=== PATIENT | male | born 1980 | race Caucasian/White ===

== ENCOUNTER 2018-12-24 10:02 | Emergency (ER) | payer SELFPAY ==
[~2018-12-24] VITALS: Ht 193 cm; Wt 86.2 kg
[2018-12-24] MEDS ORDERED: MORPHINE SULFATE 10 MG/ML VIAL. SQ ONE (10:15)
[2018-12-24 10:18] VITALS: BP 129/78
[2018-12-24] MEDS ORDERED: AMOX500C PO (11:00)
[2018-12-24] MEDS ORDERED: TRAM50TA PO (11:00)
--- NOTE | 2018-12-24 11:01 | PHYS DOC ---
Past Medical History Past Surgical History: Appendectomy Additional Past Surgical Histo: Hernia repair Additional Information: Chewing tabacco 2 cans per week Alcohol Use: None Drug Use: None Adult General Chief Complaint Chief Complaint: DENTAL PROBLEM HPI HPI Patient is a 38 year old male who presents with a fractured tooth to his left upper jaw that has become very painful over the past few days. The patient does not currently have a dentist. He has been taking ibuprofen with little relief for the pain. He denies fever or facial swelling. Review of Systems Review of Systems Constitutional: Denies fever or chills [] Eyes: Denies change in visual acuity, redness, or eye pain [] HENT: See history of present illness Respiratory: Denies cough or shortness of breath [] Cardiovascular: No additional information not addressed in HPI [] Neurologic: Denies headache, focal weakness or sensory changes [] Endocrine: Denies polyuria or polydipsia [] All other systems were reviewed and found to be within normal limits, except as documented in this note. Current Medications Current Medications Current Medications Medications (Trade) Dose Ordered Sig/Herlinda Start Time Stop Time Status Last Admin Dose Admin Morphine Sulfate (Morphine Sulfate) 10 mg 1X ONCE 12/24/18 10:15 12/24/18 10:22 DC 12/24/18 10:35 10 MG Allergies Allergies Allergies Coded Allergies Type Severity Reaction Last Updated Verified No Known Drug Allergies 12/24/18 No Physical Exam Physical Exam Constitutional: Well developed, well nourished, no acute distress, non-toxic appearance. [] HENT: Normocephalic, atraumatic, bilateral external ears normal, fracture to tooth #15 with mild erythema noted around the gum line Eyes: PERRLA, EOMI, conjunctiva normal, no discharge. [] Neck: Normal range of motion, no tenderness, supple, no stridor. [] Cardiovascular:Heart rate regular rhythm, no murmur [] Lungs & Thorax: Bilateral breath sounds clear to auscultation [] Neurologic: Alert and oriented X 3, normal motor function, normal sensory function, no focal deficits noted. [] Psychologic: Affect normal, judgement normal, mood normal. [] Current Patient Data Vital Signs Vital Signs Date Time Temp Pulse Resp B/P (MAP) Pulse Ox O2 Delivery O2 Flow Rate FiO2 12/24/18 10:35 20 99 12/24/18 10:18 97.5 60 129/78 (95) Room Air 97.5 EKG EKG [] Radiology/Procedures Radiology/Procedures [] Course & Med Decision Making Course & Med Decision Making Pertinent Labs and Imaging studies reviewed. (See chart for details) []The patient was given 10 mg of morphine subcutaneous to help control his pain. Dragon Disclaimer Dragon Disclaimer This electronic medical record was generated, in whole or in part, using a voice recognition dictation system. Departure Departure Impression: Primary Impression: Pain, dental Additional Impression: Fractured tooth Disposition: HOME, SELF-CARE Condition: STABLE Referrals: NO PCP (PCP) Patient Instructions: Tooth Fracture Additional Instructions: Take medication as directed. Follow-up with a dentist at an earliest possible appointment. Do not drive or operate heavy machinery today, as you were given narcotic pain medication. Scripts Tramadol Hcl (TRAMADOL HCL) 50 Mg Tablet 50 MG PO DAILY PRN for PAIN, #10 TAB 0 Refills Prov: YADIRA DE LA ROSA APRN 12/24/18 Amoxicillin (AMOXICILLIN) 500 Mg Capsule 2 CAP PO BID for tooth infection, #40 CAP Prov: YADIRA DE LA ROSA APRN 12/24/18 Problem Qualifiers YADIRA DE LA ROSA APRN Dec 24, 2018 11:01
== END 2018-12-24 11:06 | disposition home or self-care (01) ==
LOC: ER 10:02
DX: S02.5XXA Fracture of tooth (traumatic), initial encounter for closed fracture (principal); F17.220 Nicotine dependence, chewing tobacco, uncomplicated; X58.XXXA Exposure to other specified factors, initial encounter; Y93.89 Activity, other specified; Y92.89 Other specified places as the place of occurrence of the external cause; Y99.8 Other external cause status
CPT/HCPCS: 96372; 99283; J2270

== ENCOUNTER 2019-03-11 09:38 | Emergency (ER) | payer SELFPAY ==
[~2019-03-11] VITALS: Ht 193 cm; Wt 86.2 kg
[~2019-03-11 09:38] MED LIST: AMOX500C PO; TRAM50TA PO
[2019-03-11 09:39] VITALS: BP 123/85
[2019-03-11] MEDS ORDERED: AMOX1TAB61 PO (10:26)
--- NOTE | 2019-03-11 10:26 | PHYS DOC ---
Past Medical History Past Medical History: No Pertinent History Past Surgical History: Appendectomy Additional Past Surgical Histo: Hernia repair Alcohol Use: Occasionally Drug Use: None Adult General Chief Complaint Chief Complaint: DENTAL PROBLEM HPI HPI Patient is a 38 year old male presents with a toothache has been ongoing for 3- 4 days. Patient states he broke off his tooth and that time and states it has been hurting since. Rates his pain as 6 out of 10. The character of the pain is throbbing, and sharp. Has tried ibuprofen at home which is working minimally. Review of Systems Review of Systems Constitutional: Denies fever or chills [] Eyes: Denies change in visual acuity, redness, or eye pain [] HENT: Denies nasal congestion or sore throat but is having dental pain. Respiratory: Denies cough or shortness of breath [] Cardiovascular: No additional information not addressed in HPI [] GI: Denies abdominal pain, nausea, vomiting, bloody stools or diarrhea [] : Denies dysuria or hematuria [] Musculoskeletal: Denies back pain or joint pain [] Integument: Denies rash or skin lesions [] Neurologic: Denies headache, focal weakness or sensory changes [] Endocrine: Denies polyuria or polydipsia [] Complete systems were reviewed and found to be within normal limits, except as documented in this note. Allergies Allergies Allergies Coded Allergies Type Severity Reaction Last Updated Verified No Known Drug Allergies 12/24/18 No Physical Exam Physical Exam Constitutional: Well developed, well nourished, no acute distress, non-toxic appearance. [] HENT: Normocephalic, atraumatic, bilateral external ears normal, oropharynx moist, no oral exudates, nose normal. Swelling and chipped tooth at #32. Eyes: PERRLA, EOMI, conjunctiva normal, no discharge. [] Neck: Normal range of motion, no tenderness, supple, no stridor. [] Cardiovascular:Heart rate regular rhythm, no murmur [] Lungs & Thorax: Bilateral breath sounds clear to auscultation [] Abdomen: Bowel sounds normal, soft, no tenderness, no masses, no pulsatile masses. [] Skin: Warm, dry, no erythema, no rash. [] Back: No tenderness, no CVA tenderness. [] Extremities: No tenderness, no cyanosis, no clubbing, ROM intact, no edema. [] Neurologic: Alert and oriented X 3, normal motor function, normal sensory function, no focal deficits noted. [] Psychologic: Affect normal, judgement normal, mood normal. [] Current Patient Data Vital Signs Vital Signs Date Time Temp Pulse Resp B/P (MAP) Pulse Ox O2 Delivery O2 Flow Rate FiO2 03/11/19 09:39 97.9 67 16 123/85 (98) 98 Room Air 97.9 EKG EKG [] Radiology/Procedures Radiology/Procedures [] Course & Med Decision Making Course & Med Decision Making Pertinent Labs and Imaging studies reviewed. (See chart for details) Will put on antibiotic and have follow up with a dentist. Dragon Disclaimer Dragon Disclaimer This electronic medical record was generated, in whole or in part, using a voice recognition dictation system. Departure Departure Impression: Primary Impression: Dental abscess Disposition: 01 HOME, SELF-CARE Condition: STABLE Referrals: NO PCP (PCP) Patient Instructions: Dental Abscess Additional Instructions: Please follow up with a dentist as soon as possible. Take ibuprofen per the label instructions for pain control. Take antibiotic as prescribed. Scripts Amoxicillin/Potassium Clav (AUGMENTIN 875-125 TABLET) 1 Each Tablet 1 TAB PO BID for 7 Days, #14 TAB Prov: BEV WEBSTER APRN 03/11/19 BEV WEBSTER APRN Mar 11, 2019 10:26
[2019-03-11] MEDS ORDERED: KETOROLAC 30 MG/ML VIAL. IV ONE (10:30)
[2019-03-11] MEDS ORDERED: KETOROLAC 60 MG/2 ML VIAL. IM ONE (11:00)
== END 2019-03-11 11:01 | disposition home or self-care (01) ==
LOC: ER 09:38
DX: K02.9 Dental caries, unspecified (principal); S02.5XXA Fracture of tooth (traumatic), initial encounter for closed fracture; Z90.89 Acquired absence of other organs; X58.XXXA Exposure to other specified factors, initial encounter; Y93.89 Activity, other specified; Y92.89 Other specified places as the place of occurrence of the external cause; Y99.8 Other external cause status
CPT/HCPCS: 96372; 99283; J1885

== ENCOUNTER 2019-03-13 | Emergency (ER) | payer SELFPAY ==
[~2019-03-13] VITALS: Ht 193 cm; Wt 86.2 kg
[~2019-03-13] MED LIST changes: +AMOX1TAB61 PO
[2019-03-13] MEDS ORDERED: ONDANSETRON PF 4 MG/2 ML VIAL. IV ONE (00:30)
[2019-03-13] MEDS ORDERED: FAMOTIDINE 20 MG/2 ML VIAL IVP ONE (00:30)
[2019-03-13] MEDS ORDERED: MORPHINE SULFATE 4 MG/ML VIAL. IV ONE (00:30)
[2019-03-13 00:54] VITALS: BP 140/84
--- NOTE | 2019-03-13 01:15 | PHYS DOC ---
Past Medical History Past Medical History: No Pertinent History Past Surgical History: Appendectomy Additional Past Surgical Histo: Hernia repair Alcohol Use: Occasionally Drug Use: None Adult General Chief Complaint Chief Complaint: OTHER COMPLAINTS HPI HPI Patient is a 38 year old female with history of dysphagia presents with sensation of food bolus stuck in his upper esophagus. Patient has a history of dysphagia. States that symptoms started 2 hours ago after eating meat. Patient has been unable to drink and has been vomiting spitting up. He is able to sissy ntain his secretions. Patient has not per been formally aggravated for dysphasia. He is not on any medications. Denies choking or aspiration episodes.[] Review of Systems Review of Systems ROS as per HPI All other systems were reviewed and found to be within normal limits, except as documented in this note. Current Medications Current Medications Current Medications Medications (Trade) Dose Ordered Sig/Herlinda Start Time Stop Time Status Last Admin Dose Admin Famotidine (Pepcid Vial) 20 mg 1X ONCE 03/13/19 00:30 03/13/19 00:35 DC 03/13/19 00:48 20 MG Morphine Sulfate (Morphine Sulfate) 4 mg 1X ONCE 03/13/19 00:30 03/13/19 00:35 DC 03/13/19 00:48 4 MG Ondansetron HCl (Zofran) 4 mg 1X ONCE 03/13/19 00:30 03/13/19 00:35 DC 03/13/19 00:48 4 MG Allergies Allergies Allergies Coded Allergies Type Severity Reaction Last Updated Verified No Known Drug Allergies 12/24/18 No Physical Exam Physical Exam Constitutional: Well developed, well nourished, no acute distress, non-toxic appearance. [] HENT: Normocephalic, atraumatic, bilateral external ears normal, oropharynx moist, no oral exudates, nose normal. [] Eyes: PERRLA, EOMI, conjunctiva normal, no discharge. [] Neck: Normal range of motion, no tenderness, supple, no stridor. [] Cardiovascular:Heart rate regular rhythm, no murmur [] Lungs & Thorax: Bilateral breath sounds clear to auscultation [] Abdomen: Bowel sounds normal, soft, no epigastric pain or tenderness. [] Skin: Warm, dry, no erythema, no rash. [] Neurologic: Alert and oriented X 3, normal motor function, normal sensory function, no focal deficits noted. [] Psychologic: Affect normal, judgement normal, mood normal. [] Current Patient Data Vital Signs Vital Signs Date Time Temp Pulse Resp B/P (MAP) Pulse Ox O2 Delivery O2 Flow Rate FiO2 03/13/19 00:20 70 18 161/102 (121) 98 Room Air 03/13/19 00:06 97.9 97.9 EKG EKG [] Radiology/Procedures Radiology/Procedures [CXR: No acute cardiopulmonary disease on preliminary ED review] Course & Med Decision Making Course & Med Decision Making Pertinent Labs and Imaging studies reviewed. (See chart for details) [Medications given, patient able to pass food bolus while in the emergency department including fluids without difficulty. Recommend antacid and PCP follow-up for GI referral.] Dragon Disclaimer Dragon Disclaimer This electronic medical record was generated, in whole or in part, using a voice recognition dictation system. Departure Departure Impression: Primary Impression: Dysphagia Disposition: 01 HOME, SELF-CARE Condition: GOOD Referrals: NO PCP (PCP) Patient Instructions: Dysphagia Additional Instructions: Please start Prilosec see daily and follow-up with local primary care physician for evaluation and consideration of GI referral. JOSEP SILVEIRA DO Mar 13, 2019 01:15
--- NOTE | 2019-03-13 08:19 | RAD ---
AP portable chest radiograph 03/13/2019 Clinical History: Chest pain. An AP erect portable digital radiograph of the chest was obtained. No previous studies are available for comparison. The cardiac and mediastinal silhouettes are within normal limits in size and configuration. No acute pulmonary infiltrate is seen. No pleural effusion or pneumothorax is noted. The osseous structures are grossly intact. IMPRESSION: No acute abnormality is seen. Electronically signed by: Jerome Easley MD (03/13/2019 8:16 AM) [id number]
== END 2019-03-13 01:30 | disposition home or self-care (01) ==
LOC: ER
DX: R13.10 Dysphagia, unspecified (principal); R11.10 Vomiting, unspecified; Z90.89 Acquired absence of other organs
CPT/HCPCS: 71045; 96374; 96375; 99284; J2270; J2405; J3490

== ENCOUNTER 2019-10-24 05:37 | Emergency (ER) | payer SELFPAY ==
[~2019-10-24] VITALS: Ht 188 cm; Wt 86.2 kg
[2019-10-24 05:45] VITALS: BP 136/85
--- NOTE | 2019-10-24 05:52 | PHYS DOC ---
Past Medical History Past Medical History: No Pertinent History Past Surgical History: Appendectomy Additional Past Surgical Histo: Hernia repair Alcohol Use: Occasionally Drug Use: None Adult General Chief Complaint Chief Complaint: DENTAL PROBLEM HPI HPI Patient is a 38 year old male who presents with left inner cheek pain after dipping tobacco last week. No chest pain shortness of breath. No fever chills, facial swelling. No fever or chills. ] Review of Systems Review of Systems ROS as per HPI All other systems were reviewed and found to be within normal limits, except as documented in this note. Allergies Allergies Allergies Coded Allergies Type Severity Reaction Last Updated Verified No Known Drug Allergies 12/24/18 No Physical Exam Physical Exam Constitutional: Well developed, well nourished, no acute distress, non-toxic appearance. [] HENT: Normocephalic, atraumatic, bilateral external ears normal, oropharynx moist, canker sore inner cheek . nose normal. [] Eyes: PERRLA, EOMI, conjunctiva normal, no discharge. [] Cardiovascular:Heart rate regular rhythm, no murmur [] Lungs & Thorax: Bilateral breath sounds clear to auscultation [] Neurologic: Alert and oriented X 3, normal motor function, normal sensory function, no focal deficits noted. [] Psychologic: Affect normal, judgement normal, mood normal. [] EKG EKG [] Radiology/Procedures Radiology/Procedures [] Course & Med Decision Making Course & Med Decision Making Pertinent Labs and Imaging studies reviewed. (See chart for details) [Emergent medical screening exam performed. Patient does not have acute life-t hreatening condition. Additional evaluation offered, but declined by patient.Patient instructed to follow-up with local PCP] Jeannette Disclaimer Dragon Disclaimer This electronic medical record was generated, in whole or in part, using a voice recognition dictation system. Departure Departure Impression: Primary Impression: Encounter for medical screening examination Disposition: HOME, SELF-CARE Condition: STABLE Referrals: NO PCP (PCP) Patient Instructions: Medical Screening Exam Additional Instructions: You were evaluated in the emergency department. An emergent medical screening exam was performed and were not found to have and emergent condition. Please follow-up with your primary care physician any further concerns. JOSEP SILVEIRA DO Oct 24, 2019 05:51
== END 2019-10-24 05:50 | disposition home or self-care (01) ==
LOC: ER 05:37
DX: K13.79 Other lesions of oral mucosa (principal); G50.1 Atypical facial pain; Z90.89 Acquired absence of other organs; Z98.890 Other specified postprocedural states
CPT/HCPCS: 99281

== ENCOUNTER 2020-03-13 17:31 | Emergency (ER) | payer SELFPAY ==
[~2020-03-13] VITALS: Ht 193 cm; Wt 100.0 kg
[2020-03-13 18:10] VITALS: BP 123/75
[2020-03-13] MEDS ORDERED: DOCUSATE 100 MG/10 ML SOLUTION. AS STA (18:15)
[2020-03-13] MEDS ORDERED: traMADol 50 MG TABLET PO ONE (18:15)
[2020-03-13] MEDS ORDERED: DICL50TA2 PO (19:33)
--- NOTE | 2020-03-13 19:33 | PHYS DOC ---
Past Medical History Past Medical History: No Pertinent History (HETAL RUDD APRN) Past Surgical History: Appendectomy Additional Past Surgical Histo: Hernia repair (HETAL RUDD APRN) Smoking Status: Never Smoker Alcohol Use: Occasionally Drug Use: None (HETAL RUDD APRN) General Adult EDM: Chief Complaint: EARACHE/EAR PAIN HPI: HPI: Patient is a 39 year old male who presents to the ED today with left ear pain rated at 7 out of 10 described as clogged feeling that began a week ago. Patient reports having earwax. He states he has tried using [id number] hydrogen peroxide with no relief. (HETAL RUDD APRN) Review of Systems: Review of Systems: Constitutional: Denies fever or chills. [] Eyes: Denies change in visual acuity. [] HENT: Reports left ear pain with earwax denies nasal congestion or sore throat. [] Musculoskeletal: Denies back pain or joint pain. [] Integument: Denies rash. [] Neurologic: Denies headache, focal weakness or sensory changes. Psychiatric: Denies depression or anxiety. [] (HETAL RUDD APRN) Heart Score: Risk Factors: Risk Factors: DM, Current or recent (<one month) smoker, HTN, HLP, family history of CAD, obesity. Risk Scores: Score 0 - 3: 2.5% MACE over next 6 weeks - Discharge Home Score 4 - 6: 20.3% MACE over next 6 weeks - Admit for Clinical Observation Score 7 - 10: 72.7% MACE over next 6 weeks - Early Invasive Strategies (HETAL RUDD APRN) Current Medications: Current Medications Medications (Trade) Dose Ordered Sig/Herlinda Start Time Stop Time Status Last Admin Dose Admin Docusate Sodium (Colace Solution) 100 mg 1X STAT 03/13/20 18:15 03/13/20 18:18 DC 03/13/20 18:31 100 MG Tramadol HCl (Ultram) 50 mg 1X ONCE 03/13/20 18:15 03/13/20 18:18 DC (HETAL RUDD APRN) Allergies: Allergies: Allergies Coded Allergies Type Severity Reaction Last Updated Verified No Known Drug Allergies 12/24/18 No (HETAL RUDD APRN) Physical Exam: PE: Constitutional: Well developed, well nourished, no acute distress, non-toxic appearance. [] HENT: Normocephalic, atraumatic, bilateral external ears normal, oropharynx moist, no oral exudates, nose normal. Left ear canal is impacted with cerumen. TM cannot be visualized. Skin: Warm, dry, no erythema, no rash. [] Back: No tenderness, no CVA tenderness. [] Extremities: No tenderness, no cyanosis, no clubbing, ROM intact, no edema. [] Neurologic: Alert and oriented X 3, normal motor function, normal sensory function, no focal deficits noted. [] Psychologic: Affect normal, judgement normal, mood normal. [] (HETAL RUDD APRN) Current Patient Data: Vital Signs: Vital Signs Date Time Temp Pulse Resp B/P (MAP) Pulse Ox O2 Delivery O2 Flow Rate FiO2 03/13/20 18:10 97.7 68 18 123/75 (91) 100 Room Air 97.7 (HETAL RUDD APRN) EKG: EKG: [] (HETAL RUDD APRN) Radiology/Procedures: Radiology/Procedures: [] (HETAL RUDD APRN) Course & Med Decision Making: Course & Med Decision Making Pertinent Labs and Imaging studies reviewed. (See chart for details) This is a 39-year-old male patient presenting to the ED today with cerumen impaction to the left ear canal. Glucose that was used as well as the ear was cleaned. TM appears normal. Small amount of cerumen still left in the canal. Patient educated on how to clean it out. Discharge to home. (HETAL RUDD APRN) Dragon Disclaimer: Dragon Disclaimer: This electronic medical record was generated, in whole or in part, using a voice recognition dictation system. (HETAL RUDD APRN) Departure Departure Impression: Primary Impression: Impacted cerumen of left ear Disposition: HOME, SELF-CARE Condition: STABLE Referrals: NO PCP (PCP) THERON HERBERT MD follow up in 2 weeks as needed Patient Instructions: Cerumen Impaction-SportsMed Additional Instructions: You have earwax that was removed from the left ear. Use the medicine we gave you in the emergency room as discussed. Follow-up with the provided ENT in 2 weeks as needed Scripts Diclofenac Potassium (DICLOFENAC POTASSIUM) 50 Mg Tablet 1 TAB PO BID, #20 TAB 0 Refills Prov: HETAL RUDD APRN 03/13/20 Justicifation of Admission Dx: Justifications for Admission: Justification of Admission Dx: N/A (HETAL RUDD APRN) Attending Signature Attending Signature I have participated in the care of this patient and I have reviewed and agree with all pertinent clinical information above including history, exam, and recommendations. (DANIEL NIEVES DO) HETAL RUDD APRN Mar 13, 2020 19:33 DANIEL NIEVES DO Mar 13, 2020 22:27
== END 2020-03-13 19:38 | disposition home or self-care (01) ==
LOC: ER 17:31
DX: H61.22 Impacted cerumen, left ear (principal); Z90.89 Acquired absence of other organs; Z98.890 Other specified postprocedural states
CPT/HCPCS: 99283